=== PATIENT | female | born 1955 | race Two or more races ===

== ENCOUNTER 2017-07-27 08:04 | Day surgery (SDC) | payer BC ==
[~2017-07-27] VITALS: Ht 154.9 cm; Wt 86.2 kg
[2017-07-27] VITALS (10 sets, daily range): BP systolic 121–155; BP diastolic 72–80
[~2017-07-27 08:04] MED LIST: LR 1000ml 1,000 ML IVLG SCH
[2017-07-27] MEDS ORDERED: CLONAZEPAM2 MG PO (08:50)
[2017-07-27] MEDS ORDERED: ABILIFY10 MG ORAL (08:50)
[2017-07-27] MEDS ORDERED: NORCO1 E1 ORAL (08:51)
--- NOTE | 2017-07-27 09:34 | Short Stay Surgery H&P ---
History of Present Illness History of Present Illness Chief Complaint Abdominal pains and screening colon HPI Kasi Cueva is a 62 year old female who was admitted on for Colon Screening/abdominal pains. Patient History Allergies: Coded Allergies: No Known Allergies (Unverified , 07/26/17) PAST MEDICAL HISTORY: Past Surgeries: Social History: Medication History Scheduled Aripiprazole* (Abilify*), 5 MG ORAL DAILY, (Reported) Clonazepam (Clonazepam), 2 MG PO DA, (Reported) Scheduled PRN Acetaminophen/Hydrocodone (Nipomo 7.5-325 Tablet), 1 TAB ORAL Q4H PRN for For Pain, (Reported) Review of Systems Cardiovascular: Reports: no symptoms Respiratory: Reports: no symptoms Skeletal: Reports: no symptoms Gastrointestinal: Reports: no symptoms Genitourinary: Reports: no symptoms Neurologic: Reports: no symptoms Endocrine: Reports: no symptoms Hematologic: Reports: no symptoms Physical Exam Vital Signs Last Vital Signs Date Time Temp Pulse Resp B/P (MAP) Pulse Ox O2 Delivery O2 Flow Rate FiO2 07/27/17 08:56 98.1 76 20 121/75 96 Room Air Skin: normal HENT: normal Heart: normal Lungs: normal Abdomen: normal Extremities: normal Genitourinary: normal Plan Plan of Care Upper and lower GI endoscopies Preop Interventions none. Summary of Findings see the reports Final Diagnosis: Attestation Are the patient's medical conditions optimized for surgery? Attestation Response: yes LAKISHA MARIANO Jul 27, 2017 09:34
--- NOTE | 2017-07-27 09:35 | Pre-Procedure Note/Attestation ---
Pre-Procedure Note/Attestation Complete Prior to Procedure Planned Procedure: left Procedure Narrative: The endoscopic examination of the upper and the lower GI tracts. Indications for Procedure Pre-Operative Diagnosis: R/O peptic ulcer/colon polyps. Attestation I attest that I discussed the nature of the procedure; its benefits; risks and complications; and alternatives (and the risks and benefits of such alternatives ), prior to the procedure, with the patient (or the patient's legal footwear sales representative). I attest that, if there was a reasonable possibility of needing a blood transfusion, the patient (or the patient's legal footwear sales representative) was given the [place] [facility] [employer] [facility] standardized written summary, pursuant to the Chavo Rafael Blood Safety Act ([place] Health and Safety Code # 1645, as amended). I attest that I re-evaluated the patient just prior to the surgery and that there has been no change in the patient's H&P, except as documented below: GARCÍA,SAID Jul 27, 2017 09:35
[2017-07-27] MEDS ORDERED: Midazolam 2mg/2ml Inj ONE (09:45)
[2017-07-27] MEDS ORDERED: LR 1000ml ONE (09:45)
[2017-07-27] MEDS ORDERED: Propofol 200mg/20ml IV ONE (09:45)
--- NOTE | 2017-07-27 10:29 | Endoscopy Procedure Note ---
Endoscopy Procedure Note Indication for Procedure: abdominal pains and screening colon Procedures Performed: EGD - Small Hiatal Hernia noted otherwise normal upper GI endoscopy and a random biopsy from gastric body obtained., colonoscopy - Redundant left colon with finding of a 5 mm pedunculated polyp found at the proximal ascending colon that was removed by cold snare; otherwise normal total colonoscopy. Specimen: yes Pt Tolerated Procedure Well: Yes Estimated Blood Loss: none Anesthesiologist: Dr. Heredia Anesthesia: moderate sedation Medication Given: see anesthesia record Implant(s) used?: No 50 yrs or older w/o bx or poly: Yes 10yrs. F/U not recommended: Yes If not recommended, why?: 18 years or older w/prev. colo: No Med reason:<3 yrs.: System Reason:<3 yrs.: Last colonoscopy >= to 3yrs: Yes LAKISHA MARIANO Jul 27, 2017 10:29
--- NOTE | 2017-07-27 10:29 | Discharge Instructions ---
Discharge Instructions Discharge Instructions Follow up with: see the doctor in office after 10 days For Congestive Heart Failure Reminder Report to your physician any weight gain of 5 pounds or more in one week. LAKISHA MARIANO Jul 27, 2017 10:29
--- NOTE | 2017-07-27 20:45 | Procedure Note ---
DATE OF PROCEDURE: 07/27/2017 SURGEON: Sampson Covarrubias M.D. PROCEDURE: Esophagogastroduodenoscopy with biopsy. PREOPERATIVE DIAGNOSIS: Abdominal pain. POSTOPERATIVE DIAGNOSIS: Evidence of a small hiatal hernia, otherwise complete normal upper gastrointestinal endoscopy. Biopsy was taken per random from gastric body. MEDICATION USED: Per Dr. Heredia INSTRUMENT: GIF Olympus upper gastrointestinal video endoscope. DESCRIPTION OF PROCEDURE: The patient after arriving in the endoscopy unit, was told about risks and benefits of the procedure, which she accepted and signed informed consent. She was then put in the left lateral decubitus position. After adequate IV sedation, the scope was gently passed through the cricopharyngeal area, was lodged in the upper esophagus and gradually advanced towards gastroesophageal junction. The entire length of the esophagus looked normal and there was no evidence of inflammatory process, ulceration, stricture, etc. GE junction looked normal. There was no any evidence of Espinoza's; however, there was a small hiatal hernia of no great significance. The scope was then guided into the stomach. Gastric cavity was distended and gradually the area of the fundus and the body and the antrum were examined, which looked completely normal without any evidence of inflammatory process, polyps, tumors etc. There were no ulcers. A retroflexion maneuver was applied. The area of the gastroesophageal junction was examined, which looked normal. Finally, the scope was passed through normal-looking pylorus. First and second portion of duodenum were also found to be completely normal. At this time, the scope was pulled out and the procedure was terminated. Sampson Covarrubias M.D. DR: Wendie JOB#: [id number] CC:
--- NOTE | 2017-07-27 20:45 | Procedure Note ---
DATE OF PROCEDURE: 07/27/2017 SURGEON: Sampson Covarrubias M.D. PROCEDURE: Total colonoscopy with polypectomy. PREOPERATIVE DIAGNOSIS: Screening colonoscopy. POSTOPERATIVE DIAGNOSES: Evidence of a 5-mm pedunculated polypoid lesion found in the proximal ascending colon removed with cold snare, otherwise completely normal total colonoscopy with high redundancy of the left colon. MEDICATION USED: Per Dr. Heredia. ANESTHESIOLOGIST: Dr. Heredia. INSTRUMENT: GIF Olympus video colonoscope. DESCRIPTION OF PROCEDURE: The patient after arriving in endoscopy unit was told about risks and benefits of the procedure, which she accepted and signed informed consent. She was then put in the left lateral decubitus position. After adequate IV sedation, the scope was gently passed through the anal area and careful examination of this section did not reveal any pathology. There were no hemorrhoids or inflammatory process, etc. At this point, the scope gradually was advanced through highly redundant left colon, which took some time to pass through. There was no any pathology in the left descending colon. Gradually, the scope reached towards the splenic flexure and it was guided into the transverse colon and finally reached towards the right hepatic flexure and guided into the right ascending colon. Incidental finding was presence of a 5-mm pedunculated benign-looking polypoid lesion over the proximal ascending colon near the ileocecal valve, which was grabbed with cold snare and totally removed and the specimen was sent to the laboratory pathology. The base of the cecum also looked normal. At this point, within 7 minutes, the scope was gradually pulled out and no other pathology was found. The colon cleanup was also adequate. The patient tolerated the procedure well and left the endoscopy room in good condition. Sampson Covarrubias M.D. DR: Selam JOB#: [id number] CC: SUNNI
== END 2017-07-27 12:50 | disposition home or self-care (01) ==
LOC: GAS 08:04
DX: Z12.11 Encounter for screening for malignant neoplasm of colon (principal); K44.9 Diaphragmatic hernia without obstruction or gangrene; K29.50 Unspecified chronic gastritis without bleeding; D12.2 Benign neoplasm of ascending colon
CPT/HCPCS: 43239; 45380; J0171; J2250; J2704; J7120; 94003; 94150